=== PATIENT | female | born 1970 | race Caucasian/White ===

== ENCOUNTER 2022-03-18 09:15 | Outpatient (CLI) | payer BC | END 2022-03-18 09:16 | disposition home or self-care (01) | LOC: CSHULT 09:15 | PROVIDERS: ATTEND Physician Assistant Medical | DX: R10.11 Right upper quadrant pain (principal); R93.2 Abnormal findings on diagnostic imaging of liver and biliary tract; K76.0 Fatty (change of) liver, not elsewhere classified | CPT/HCPCS: 76700 ==

== ENCOUNTER 2022-04-19 11:02 | Outpatient (CLI) | payer OTHER ==
[2022-04-19 13:10] LABS: Anion Gap 14 mmol/L (10-20); BUN (Urea Nitrogen) 17 mg/dL (7.0-18.7); Calc. Creatinine Clearance 0 mL/min (70-130); Calcium 9.7 mg/dL (7.8-10.44); Carbon Dioxide 27 mmol/L (22-29); Chloride 100 mmol/L (98-107); Estimated GFR 99; Glucose 105 mg/dL (70-105); Potassium 4.4 mmol/L (3.5-5.1); Sodium 137 mmol/L (136-145)
== END 2022-04-19 11:03 | disposition home or self-care (01) ==
LOC: CSHLAB 11:02
PROVIDERS: ATTEND Surgery
DX: Z01.818 Encounter for other preprocedural examination (principal); Z20.822 Contact with and (suspected) exposure to COVID-19; K80.20 Calculus of gallbladder without cholecystitis without obstruction; R79.89 Other specified abnormal findings of blood chemistry
CPT/HCPCS: 80048; 87811; 93005; 93010

== ENCOUNTER 2022-04-22 07:30 | Day surgery (SDC) | payer OTHER ==
[2022-04-20 12:07] VITALS: BMI 29.9
[2022-04-22] MEDS ORDERED: Fentanyl 100 MCG/2 ML VIAL ONE (08:40)
[2022-04-22] MEDS ORDERED: EPINEPHrine 1 MG/ML AMP ONE (08:40)
[2022-04-22] MEDS ORDERED: Dexamethasone 4 mg/ml Vial ONE (08:40)
[2022-04-22] MEDS ORDERED: Ondansetron PF 4 MG/2 ML Vial ONE (08:40)
[2022-04-22] MEDS ORDERED: PROPOFOL 20 ML ONE (08:40)
[2022-04-22] MEDS ORDERED: Bupivacaine PF 0.5% 30 ML VIAL ONE (08:40)
[2022-04-22] MEDS ORDERED: Rocuronium Bromide 10 MG/ML (10ML VIAL) ONE (08:40)
[2022-04-22] MEDS ORDERED: Lidocaine 2% PF 5 ML VIAL ONE (08:41)
[2022-04-22] MEDS ORDERED: CEFAZOLIN 1 GM VIAL ONE (08:41)
[2022-04-22] MEDS ORDERED: Midazolam HCl 2 mg/2 ml Vial ONE (08:42)
[2022-04-22] MEDS ORDERED: HYDROmorphone 0.5 MG/0.5 ML SYRINGE ONE (08:47)
[2022-04-22] MEDS ORDERED: ePHEDrine Sulfate 50 MG/10 ML VIAL ONE (09:18)
[2022-04-22] MEDS ORDERED: Glycopyrrolate 0.2 MG/ML 5 ML SYRINGE ONE (09:26)
[2022-04-22] MEDS ORDERED: HYDROcodone/Acetaminophen 5/325 mg Tablet PO PRN (09:44)
[2022-04-22] MEDS ORDERED: Acetaminophen 325 MG TAB PO PRN (09:44)
== END 2022-04-22 10:55 | disposition home or self-care (01) ==
LOC: CSHSDC 07:30
PROVIDERS: ATTEND Surgery
PROC: 0FT44ZZ Resection of Gallbladder, Percutaneous Endoscopic Approach (ICD-10-PCS; principal; 2022-04-22)
DX: K81.1 Chronic cholecystitis (principal); R79.89 Other specified abnormal findings of blood chemistry; J45.909 Unspecified asthma, uncomplicated; E11.9 Type 2 diabetes mellitus without complications; G43.909 Migraine, unspecified, not intractable, without status migrainosus; F41.9 Anxiety disorder, unspecified; F32.A Depression, unspecified; Z79.899 Other long term (current) drug therapy; Z20.822 Contact with and (suspected) exposure to COVID-19
CPT/HCPCS: 88304; C1776; J0171; J0690; J1100; J1170; J2001; J2250; J2405; J2704; J3010; S0020

== ENCOUNTER 2022-07-15 08:44 | Day surgery (SDC) | payer OTHER ==
[2022-07-14 10:19] VITALS: BMI 31.6
[2022-07-15] MEDS ORDERED: PROPOFOL 40 ML ONE (11:20)
[2022-07-15] MEDS ORDERED: Midazolam HCl 2 mg/2 ml Vial ONE (11:21)
[2022-07-15] MEDS ORDERED: Lidocaine 1% PF 5 ML VIAL ONE (11:22)
[2022-07-15] MEDS ORDERED: PROPOFOL 20 ML ONE (11:37)
[2022-07-15] MEDS ORDERED: Fentanyl 100 MCG/2 ML VIAL ONE (11:37)
== END 2022-07-15 12:30 | disposition home or self-care (01) ==
LOC: CSHSDC 08:44
PROVIDERS: ATTEND Surgery
PROC: 0DJD8ZZ Inspection of Lower Intestinal Tract, Via Natural or Artificial Opening Endoscopic (ICD-10-PCS; principal; 2022-07-15)
DX: Z12.11 Encounter for screening for malignant neoplasm of colon (principal); K64.1 Second degree hemorrhoids; E11.9 Type 2 diabetes mellitus without complications; J45.909 Unspecified asthma, uncomplicated; E66.9 Obesity, unspecified; Z68.31 Body mass index [BMI] 31.0-31.9, adult
CPT/HCPCS: J2250; J2704; J3010